=== PATIENT | male | born 1965 | race Caucasian/White ===

== ENCOUNTER 2021-11-19 03:45 | Observation (INO) | payer BC, OTHER ==
[2021-11-19] MEDS ORDERED: Ondansetron 4 MG/2 ML SDV IVPUSH ONE (04:11)
[2021-11-19] MEDS ORDERED: Sodium Chloride 0.9% 1,000 ML IV SCH (04:15)
[2021-11-19 04:53] LABS: CHLORIDE,CL 101 mmol/L (98-107); SODIUM,NA 137 mmol/L (136-145)
[2021-11-19 04:54] LABS: ANION GAP 13.3 mmol/L (5-15)
[2021-11-19] MEDS ORDERED: Ondansetron 4 MG/2 ML SDV IV PRN (05:45)
[2021-11-19] MEDS ORDERED: Acetaminophen 325 MG Tab PO PRN (05:45)
[2021-11-19] MEDS ORDERED: Ondansetron 4 MG Tab.DIS PO PRN (05:45)
[2021-11-19] MEDS ORDERED: Albuterol HFA 18 Gm Inhaler INH PRN (05:45)
[2021-11-19] MEDS ORDERED: cefTRIAXone 1 GM Vial IVPUSH SCH (08:00)
[2021-11-19] MEDS ORDERED: Doxycycline 100 MG Cap PO SCH (08:00)
[2021-11-19] MEDS ORDERED: amLODIPine 5 MG Tab PO SCH (08:00)
[2021-11-19] MEDS ORDERED: Losartan 50 MG Tab PO SCH (08:00)
[2021-11-19] MEDS ORDERED: Hydrochlorothiazide 25 MG Tab PO SCH (08:00)
[2021-11-19] MEDS ORDERED: Iopamidol 755 Mg/ML 100 ML Bottle IVPUSH ONE (09:41)
[2021-11-19] MEDS: Meclizine 25 MG Tab PO SCH ×2 (10:13→14:03)
[2021-11-19] MEDS ORDERED: Metoprolol Tartrate 5 MG/5 ML SDV IVPUSH STA (13:48)
[2021-11-19] MEDS ORDERED: Metoprolol Succinate 25 MG Tab.ER PO SCH (14:30)
[2021-11-19] MEDS ORDERED: Apixaban 2.5 MG Tab PO SCH (14:45)
[2021-11-19] MEDS ORDERED: Meclizine 25 MG Tab PO PRN (15:55)
[2021-11-19] MEDS ORDERED: Apixaban 2.5 MG Tab PO ONE (15:59)
[2021-11-19] MEDS ORDERED: Metoprolol Succinate 25 MG Tab.ER PO ONE (16:03)
[2021-11-19] MEDS ORDERED: Meclizine 25 MG Tab PO ONE (16:03)
[2021-11-19 17:50] VITALS: BP 124/84; PULSE 87
[2021-11-19] MEDS ORDERED: atorvaSTATin 10 MG Tab PO SCH (20:00)
[2021-11-20] MEDS ORDERED: VALSARTAN 320 MG PO SCH (08:00)
== END 2021-11-19 17:25 | disposition home or self-care (01) ==
LOC: VM.ED 03:45 → VM.MS 05:30 → UNDOADMOB 05:30
PROVIDERS: ADMIT Physician Assistant Medical; ATTEND Physician Assistant Medical
DX: I48.91 Unspecified atrial fibrillation (principal); J01.01 Acute recurrent maxillary sinusitis; R42 Dizziness and giddiness; I10 Essential (primary) hypertension; E78.5 Hyperlipidemia, unspecified; J45.909 Unspecified asthma, uncomplicated; E11.9 Type 2 diabetes mellitus without complications; G47.33 Obstructive sleep apnea (adult) (pediatric); Z79.899 Other long term (current) drug therapy; Z88.8 Allergy status to other drugs, medicaments and biological substances; Z90.49 Acquired absence of other specified parts of digestive tract; Z98.890 Other specified postprocedural states; Z20.822 Contact with and (suspected) exposure to COVID-19
CPT/HCPCS: 70450; 70496; 80053; 81001; 84484; 85025; 85610; 85730; 86140; 93005; 96374; 96375; 99285-25; A9270-GY; J0696; J2405; J3360; J3490; J7030; Q9967; U0002